=== PATIENT | male | born 1965 | race Caucasian/White ===

== ENCOUNTER 2017-05-15 15:00 | Inpatient (IN) | payer MEDICARE ==
[~2017-05-15] VITALS: Ht 185.4 cm; Wt 120.7 kg
--- NOTE | ~2017-05-15 | PN ---
Unit #: [id number] #: [id number] Patient: KARLA TRAMMELL [id number] [facility] [address] [place] [address] [id number] MR#: [id number] NAME: KARLA TRAMMELL ROOM: P259 Age: 51 Sex: M Admission Date: 05/15/2017 : 1965 Attending Physician: Lance Johnson M.D. Admitting Physician: Lance Johnson M.D. Primary Care Physician: Primary Care Physician Kristin LEPE PROGRESS NOTES DATE 05/20/2017 DISCUSSION Mr. Trammell is a 51-year-old white male who was seen today and chart was reviewed and case was discussed with the staff. He reports persistent anxiety. Meanwhile, he has been taking medications and tolerating them fairly well with no reported side effects. MENTAL STATUS EXAMINATION Middle-aged white male who was casually dressed with fair personal hygiene and appears to be in no acute distress or discomfort. He was awake and alert on interaction with intact orientation. His mood was anxious with congruent affect. His speech is slow and goal-directed. He denies any suicidal or homicidal ideation and also denies any auditory or visual hallucinations. His insight and judgement remains slightly impaired. TREATMENT PLAN 1. Will continue on his current medications and treatment protocol and will monitor his response and make further adjustments as needed. 2. Will continue to follow up. Dictated by... Willa Horne/rio TD: 05/20/2017 16:47 JOB #: [id number] Unit #: [id number] #: [id number] Patient: KARLA TRAMMELL PROGRESS NOTES Page 1 of 1 X Lance Johnson MD PROGRESS NOTE
--- NOTE | ~2017-05-15 | PN ---
Unit #: [id number] #: [id number] Patient: KARLA TRAMMELL [id number] [facility] [address] [place] [address] [id number] I MR#: [id number] NAME: KARLA TRAMMELL ROOM: P259 Age: 51 Sex: M Admission Date: 05/15/2017 : 1965 Attending Physician: Lance Johnson M.D. Admitting Physician: Lance Johnson M.D. Primary Care Physician: Primary Care Physician Kristin LEPE PROGRESS NOTES DATE 05/24/2017 DISCUSSION Mr. Trammell is a 51-year-old white male who was seen today and chart was reviewed and case was discussed with the staff. He has been anxious, withdrawn and rather seclusive to himself. Meanwhile, he has been cooperative with treatment recommendations and has been taking medications and tolerating them fairly well with no reported side effects. MENTAL STATUS EXAMINATION Middle-aged white male who was casually dressed with fair personal hygiene and appears to be in no acute distress or discomfort. He was awake and alert on interaction with intact orientation. His mood was anxious with congruent affect. His speech is slow and goal-directed. He denies any suicidal or homicidal ideation and also denies any auditory or visual hallucinations. His insight and judgement remains slightly impaired. TREATMENT PLAN 1. Will continue on his current treatment protocol. Will monitor his response to the medications and make further adjustments as needed. 2. Will continue to follow up. Dictated by... Willa Horne/rio TD: 05/24/2017 18:32 JOB #: [id number] Unit #: [id number] #: [id number] Patient: KARLA TRAMMELL PROGRESS NOTES Page 1 of 1 X Lance Johnson MD PROGRESS NOTE
--- NOTE | ~2017-05-15 | CO ---
Unit #: [id number] #: [id number] Patient: KARLA QUESADA [id number] [facility] [address] [place] [address] [id number] I MR#: [id number] NAME: KARLA QUESADA ROOM: P259 Age: 51 Sex: M Admission Date: 05/15/2017 : 1965 Attending Physician: Lance Johnson M.D. Primary Care Physician: Primary Care Physician No Consultation Date: 05/17/2017 CONSULTATION REPORT ORDERING PROVIDER Dr. Johnson. REASON FOR CONSULTATION Chest pressure and shortness of breath. SUBJECTIVE The patient reports that he woke up this morning and felt very hot and then all of the sudden had a lot of pressure in his chest and shortness of breath. He does report significant cardiac history including history of myocardial infarction with coronary artery bypass and heart failure. He recently had a cardiac cath placed a couple of days ago, which he told was within normal limits. He denies any swelling or recent weight gain. OBJECTIVE VITAL SIGNS: Stable with blood pressure 126/81, heart rate 61, and O2 saturations at 98%. HEART: Regular rate and rhythm. LUNGS: Clear to auscultation bilaterally. He has no edema. No jugular venous distention. ASSESSMENT Chest pain. PLAN Plan is to get a stat EKG, chest x-ray and lab work. We will also have the nurses monitor daily weight. I think it is likely that the patient is experiencing anxiety; however, due to his stable vital signs and lack of findings on recent cardiac cath, we will continue to monitor. Dictated by... Heather Boland/rhianna TD: 05/18/2017 12:00 JOB #: [id number] Unit #: [id number] #: [id number] Patient: KARLA QUESADA CONSULTATION REPORT Page 1 of 1 X VINOD DIAZ APRN CONSULTATION REPORT
--- NOTE | ~2017-05-15 | EKG ---
PATIENT: KARLA QUESADA UNIT #: [id number] Ventricular Rate: 60 BPM Atrial Rate: 60 BPM P-R Interval: 208 ms QRS Duration: 118 ms Q-T Interval: 446 ms QTC Calculation(Bezet): 446 ms Calculated R Quincy: -25 degrees Calculated T Quincy: 118 degrees Diagnosis Line: Electronic atrial pacemaker Diagnosis Line: Left ventricular hypertrophy with QRS widening Diagnosis Line: Inferior infarct , age undetermined Diagnosis Line: ST and T wave abnormality, consider lateral ischemia Diagnosis Line: Abnormal ECG Diagnosis Line: No previous ECGs available Diagnosis Line: Confirmed by JOSÉ LUIS FREGOSO MD ([id number]) on 05/19/2017 Diagnosis Line: 10:05:28 PM INTERPRETING MD: ZENOBIA SCOTT
--- NOTE | ~2017-05-15 | HP ---
Unit #: [id number] #: [id number] Patient: KARLA QUESADA [id number] [place] [address] [id number] MR#: [id number] NAME: KARLA QUESADA ROOM: P259 Age: 51 Sex: M Admission Date: 05/15/2017 : 1965 Attending Physician: Lance Johnson M.D. Admitting Physician: Lance Johnson M.D. Primary Care Physician: Primary Care Physician No HISTORY AND PHYSICAL HISTORY OF PRESENT ILLNESS Karla is a 51 year old admitted to [address] [place] [address] with depression and verbalizing wanting to hurt himself. PAST MEDICAL HISTORY 1. Coronary artery disease. a. History of WI. b. Six vessel CABG. 2. Aneurysm repair. 3. Pacemaker placed. 4. High blood pressure. 5. Hyperlipidemia. 6. History of congestive heart failure. 7. Cardiomyopathy. 8. Peripheral vascular disease. a. History of claudication. PAST SURGICAL HISTORY 1. As above. 2. Left knee. ALLERGIES No known drug allergies. SOCIAL HISTORY He does not smoke. Drinks alcohol rarely. Denies illicit drug use. FAMILY HISTORY Medically noncontributory. REVIEW OF SYSTEMS CONSTITUTIONAL: No fever or chills. HEENT: Denies any sore throat, ear pain or runny nose. CARDIOVASCULAR: Denies chest pain, irregular heart rhythm or palpitations. CHEST: Denies shortness of breath or cough. No hemoptysis. GASTROINTESTINAL: Denies nausea, vomiting, diarrhea or chronic constipation. ENDOCRINE: Denies history of increased thirst or urination. No recent significant weight loss or gain. GENITOURINARY: Denies dysuria, frequency, or hematuria. SKIN: Denies any rashes. HEMATOLOGIC: Denies history of increased bleeding or bruising. MUSCULOSKELETAL: Denies any hot, swollen joints. No generalized muscle Unit #: [id number] #: [id number] Patient: KARLA QUESADA pain. NEUROLOGIC: Denies problems with vision or speech. No frequent, severe headaches. No numbness, tingling or weakness in any extremities. Denies loss of bladder or bowel control. CURRENT MEDICATIONS 1. Crestor 20 mg daily. 2. Vraylar 3 mg q.h.s. 3. Effexor XR 75 mg q.h.s. 4. Zestril 20 mg daily. 5. Aspirin 81 mg daily. 6. Lanoxin 0.125 mg daily. 7. Brilinta 90 mg b.i.d. 8. Spironolactone 25 mg daily. 9. Mobic 7.5 mg daily. 10. Lasix 40 mg daily. 11. Coreg 25 mg b.i.d. 12. Xanax 0.5 mg daily. 13. Milk of Magnesia p.r.n. 14. Maalox p.r.n. 15. Tylenol p.r.n. PHYSICAL EXAMINATION GENERAL: Alert, well-nourished, in no apparent distress. VITAL SIGNS: Blood pressure 148/88, heart rate 60, respirations 16, temperature 98.6. WEIGHT: 250. HEIGHT: 6 feet 1 inch. SKIN: Warm and dry. He does have a thick, dry, circular rash along his arms and both legs. HEENT: Normocephalic. TMs not viewed. Oral and nasal passages clear. Conjunctivae clear. PERRLA. EOMs intact. NECK: Supple without lymphadenopathy or thyromegaly. HEART: Rate and rhythm is regular with a 1/6 diastolic murmur. CHEST: Pacemaker noted along left anterior chest wall. ABDOMEN: Soft, nontender. : Not done. EXTREMITIES: No evidence of cyanosis, clubbing or edema. Moves all without focal deficit. NEUROLOGICAL: Grossly within normal limits. Cranial Nerves: II: Visual smith are intact. III, IV AND : Extraocular movements are intact. Pupils are equal, round and reactive to light. V: Facial sensation is grossly normal. VII: Facial movements and expression are normal. VIII: Auditory acuity grossly intact. IX, X: Uvula is midline. Phonation is normal. XI: Patient shrugs shoulders and turns head normally. XII: Tongue protrudes in the midline. Sensory and Motor Function: Sensory and motor sensation is grossly normal. Motor: moves all extremities well. Coordination: Gait is normal. Deep Tendon Reflexes: Intact. IMPRESSION Psychiatric admission. RECOMMENDATIONS PSYCHIATRIC: Per psychiatrist. MEDICAL: See no contraindication to participate in facility's activities. Unit #: [id number] #: [id number] Patient: KARLA QUESADA MEDICAL PROGNOSIS Good. MEDICAL CONDITION Stable. Dictated by... Maranda Hdz P.A.-C. for Willa Bowers/rio TD: 05/16/2017 21:55 JOB #: [id number] HISTORY AND PHYSICAL Page 1 of 1 X Maranda Hdz X HISTORY AND PHYSICAL
--- NOTE | ~2017-05-15 | PN ---
Unit #: [id number] #: [id number] Patient: KARLA TRAMMELL [id number] [facility] [address] [place] [address] [id number] I MR#: [id number] NAME: KARLA TRAMMELL ROOM: P259 Age: 51 Sex: M Admission Date: 05/15/2017 : 1965 Attending Physician: Lance Johnson M.D. Admitting Physician: Lance Johnson M.D. Primary Care Physician: Primary Care Physician Kristin BLACK NOTES DATE May 26, 2017 DISCUSSION Mr. Trammell is a 51-year-old white male, who was seen today and chart was reviewed and the case was discussed with the staff. He has been anxious, withdrawn, and rather seclusive to himself, and has been exhibiting some persistent depressive symptoms but he has been calm and cooperative with the treatment recommendations. He has been taking the medications and tolerating them fairly well with no reported side effects. MENTAL STATUS EXAMINATION Middle-aged white male, who was casually dressed with fair personal hygiene and appears to be in no acute distress or discomfort. He was awake and alert on interaction with intact orientation. His mood is anxious with a congruent affect. He denies any suicidal or homicidal ideations. His insight and judgment remain slightly impaired. TREATMENT PLAN 1. We will continue him on his current medications and treatment protocol, and will monitor his response to the medications, and make further adjustments as needed. 2. We will continue to followup. Dictated by... Willa Horne/kingsley TD: 05/27/2017 08:41 JOB #: [id number] Unit #: [id number] #: [id number] Patient: KARLA TRAMMELL PROGRESS NOTES Page 1 of 1 X Lance Johnson MD PROGRESS NOTE
--- NOTE | ~2017-05-15 | PN ---
Unit #: [id number] #: [id number] Patient: KARLA TRAMMELL [id number] [facility] [address] [place] [address] [id number] I MR#: [id number] NAME: KARLA TRAMMELL ROOM: P259 Age: 51 Sex: M Admission Date: 05/15/2017 : 1965 Attending Physician: Lance Johnson M.D. Admitting Physician: Lance Johnson M.D. Primary Care Physician: Primary Care Physician Kristin LEPE PROGRESS NOTES DATE May 25, 2017 DISCUSSION Mr. Trammell is a 51-year-old white male, who was seen today and chart was reviewed and the case was discussed with the staff. He has been doing fairly well but has been seclusive to himself. He has had some persistent anxiety and depressive symptoms. He has been compliant with the treatment recommendations and he has been going to therapy groups and has been taking the medications and tolerating them fairly well. MENTAL STATUS EXAMINATION Middle-aged white male, who was casually dressed with fair personal hygiene and appears to be in no acute distress or discomfort. He was awake and alert on interaction with intact orientation. His mood is anxious with a congruent affect. His speech is slow and goal-directed. He denies any suicidal or homicidal ideations. His insight and judgment remain slightly impaired. TREATMENT PLAN 1. We will continue him on his current medications and treatment protocol, and will monitor his response to the medications, and make further adjustments as needed. 2. We will continue to followup. Dictated by... Willa Horne/kingsley TD: 05/26/2017 09:58 JOB #: [id number] Unit #: [id number] #: [id number] Patient: KARLA TRAMMELL PROGRESS NOTES Page 1 of 1 X Lance Johnson MD PROGRESS NOTE
--- NOTE | ~2017-05-15 | PN ---
Unit #: [id number] #: [id number] Patient: KARLA TRAMMELL [id number] [facility] [address] [place] [address] [id number] I MR#: [id number] NAME: KARLA TRAMMELL ROOM: P259 Age: 51 Sex: M Admission Date: 05/15/2017 : 1965 Attending Physician: Lance Johnson M.D. Admitting Physician: Lance Johnson M.D. Primary Care Physician: Primary Care Physician Kristin LEPE PROGRESS NOTES DATE May 19, 2017 DISCUSSION Mr. Trammell is a 51-year-old white male, who was seen today and chart was reviewed and the case was discussed with the staff. He has been complaining of persistent anxiety and has been seclusive to himself. Meanwhile, he has been cooperative with the treatment recommendations and he has been taking the medications and tolerating them fairly well with no reported side effects. MENTAL STATUS EXAMINATION Middle-aged white male, who was casually dressed with fair personal hygiene and appears to be in no acute distress or discomfort. He was awake and alert on interaction with intact orientation. His mood is anxious with a congruent affect. He denies any suicidal or homicidal ideations, and also denies any auditory or visual hallucinations. His insight and judgment remain slightly impaired. TREATMENT PLAN 1. We will continue him on his current medications and treatment protocol, and will monitor his response to the medications, and make further adjustments as needed. 2. We will continue to followup. Dictated by... Willa Horne/kingsley TD: 05/20/2017 06:38 JOB #: [id number] Unit #: [id number] #: [id number] Patient: KARLA TRAMMELL PROGRESS NOTES Page 1 of 1 X Lance Johnson MD PROGRESS NOTE
--- NOTE | ~2017-05-15 | PN ---
Unit #: [id number] #: [id number] Patient: KARLA TRAMMELL [id number] [facility] [address] [place] [address] [id number] I MR#: [id number] NAME: KARLA TRAMMELL ROOM: P259 Age: 51 Sex: M Admission Date: 05/15/2017 : 1965 Attending Physician: Lance Johnson M.D. Admitting Physician: Lance Johnson M.D. Primary Care Physician: Primary Care Physician Kristin BLACK NOTES DATE OF SERVICE 05/21/2017 DISCUSSION Mr. Trammell is a 31-year-old, white male who was seen today and chart was reviewed and case was discussed with the staff. He reports persistent anxiety though he has been taking the medication and tolerating them fairly well, he has not been able to show a therapeutic response. MENTAL STATUS EXAM Middle-aged white male who was casually dressed with fair personal hygiene, appears to be in no acute distress or discomfort. He was awake and alert on interaction with intact orientation. His mood was anxious with congruent affect. His speech was slow and goal directed. He denies any suicidal or homicidal ideation. Also, denies any auditory or visual hallucinations. His insight and judgement remains slightly impaired. TREATMENT PLAN 1. We will continue him on his current medications and treatment protocol. We will monitor his response to medication and make further adjustments as needed. 2. We will continue to follow up. Dictated by... Willa Horne/rocio TD: 05/22/2017 00:03 JOB #: [id number] [facility] PROGRESS NOTES Page 1 of 1 X Lance Johnson MD PROGRESS NOTE
--- NOTE | ~2017-05-15 | PN ---
Unit #: [id number] #: [id number] Patient: KARLA TRAMMELL [id number] [facility] [address] [place] [address] [id number] I MR#: [id number] NAME: KARLA TRAMMELL ROOM: P259 Age: 51 Sex: M Admission Date: 05/15/2017 : 1965 Attending Physician: Lance Johnson M.D. Admitting Physician: Lance Johnson M.D. Primary Care Physician: Primary Care Physician Kristin BLACK NOTES DATE OF SERVICE 05/23/2017 DISCUSSION Mr. Trammell is a 51-year-old white male who was seen today. Chart was reviewed and case was discussed with the staff. He has been anxious, withdrawn, depressed, and was seclusive to himself. Meanwhile, he has been cooperative with treatment recommendations and has been taking the medications and tolerating them fairly well with no reported side effects. MENTAL STATUS EXAMINATION Middle-aged white male who is casually dressed with fair personal hygiene, appears to be in no acute distress or discomfort. He was awake and alert on interaction with intact orientation. His mood is anxious with congruent affect. His speech is slow and goal-directed. He denies any suicidal or homicidal ideations. His insight and judgment remain slightly impaired. TREATMENT PLAN 1. We will continue him on his current medications and treatment protocol. We will monitor his response to the medications and make further adjustments as needed. 2. We will continue to follow up. Dictated by... Lance Johnson M.D. IAA/mallyg TD: 05/23/2017 12:10 JOB #: [id number] Unit #: [id number] #: [id number] Patient: KARLA TRAMMELL PROGRESS NOTES Page 1 of 1 X Lance Johnson MD PROGRESS NOTE
--- NOTE | ~2017-05-15 | CR63 ---
[facility] A Service of [facility] RADIOLOGY TEXT RESULTS PATIENT: KARLA QUESADA LOCATION: P2 P2505-30 : [birth year] UNIT #: [id number] AGE: [address]: Lance Johnson MD SEX: M ORDER DR: [id number] [facility] [address] [place], [place] [address] [id number] MR#: [id number] Acc #: [id number] NAME: KARLA QUESADA : 1965 SEX: M STUDY DATE/TIME: 05/17/2017 10:09 UNIT: [facility] ROOM: [facility] STUDY DESCRIPTION: CR Chest 2 View Attending Physician: Lance Johnson M.D. Ordering Physician: Lance Johnson M.D. Primary Care Physician: Primary Care Physician No MEDICAL IMAGING REPORT This report is preliminary unless electronic signature is present EXAM 2 views of the chest COMPARISON None INDICATION 51-year-old male with chest pressure and dyspnea today. History of cardiac catheterization a few days ago. FINDINGS No evidence of pneumothorax, pleural effusion or acute airspace disease. There is cardiomegaly. Dual lead left chest pacemaker defibrillator device is noted. No evidence of complication. This device may actually have a third lead, the tip of which is not well evaluated given motion. Sternotomy wires appear intact. There has likely been prior CABG. IMPRESSION 1. Cardiomegaly. No evidence of pulmonary edema or other acute radiographic abnormality of the chest. 2. Prior CABG. Left chest pacemaker/defibrillator device appears grossly unremarkable although the lead tips are not well evaluated due to motion. Dictated by... Nhan Arthur M.D. THIS IS AN ELECTRONICALLY VERIFIED REPORT Nhan Arthur M.D. at 05/19/2017 10:16 PM Nando TD: 05/17/2017 14:18 JOB #: [id number] [facility] A Service of [facility] RADIOLOGY TEXT RESULTS PATIENT: KARLA QUESADA LOCATION: P2L : [birth year] UNIT #: [id number] AGE: [address]: Lance Johnson MD SEX: M ORDER DR: MEDICAL IMAGING REPORT Page 1 of 1 COPY
--- NOTE | ~2017-05-15 | CO ---
Unit #: [id number] #: [id number] Patient: KARLA QUESADA [id number] [facility] [address] [place] [address] [id number] I MR#: [id number] NAME: KARLA QUESADA ROOM: P259 Age: 51 Sex: M Admission Date: 05/15/2017 : 1965 Attending Physician: Lance Johnson M.D. Primary Care Physician: Primary Care Physician No Consultation Date: 05/18/2017 CONSULTATION REPORT Ordering provider is Dr. Johnson. REASON FOR CONSULT Chest pain. SUBJECTIVE The patient was seen yesterday for chest pressure and shortness of breath. EKG, chest x-ray, and lab work were all done. His EKG was unchanged from one done previously on 05/13/2017. His chest x-ray showed no acute findings and his labs were unremarkable. Digoxin level was below therapeutic range. The patient does appear to be stable and feels better today. We will continue to monitor. Dictated by... Heather Boland/rhianna TD: 05/18/2017 21:17 JOB #: [id number] CONSULTATION REPORT Page 1 of 1 X VINOD DIAZ APRN CONSULTATION REPORT
--- NOTE | ~2017-05-15 | PN ---
Unit #: [id number] #: [id number] Patient: KARLA TRAMMELL [id number] [facility] [address] [place] [address] [id number] MR#: [id number] NAME: KARLA TRAMMELL ROOM: P259 Age: 51 Sex: M Admission Date: 05/15/2017 : 1965 Attending Physician: Lance Johnson M.D. Admitting Physician: Lance Johnson M.D. Primary Care Physician: Primary Care Physician Kristin LEPE PROGRESS NOTES DATE 05/22/2017 DISCUSSION Mr. Trammell is a 51-year-old white male who was seen today and chart was reviewed and case was discussed with the staff. He has been anxious, withdrawn and rather seclusive to himself. Meanwhile, he has been cooperative with treatment recommendations and has been taking medications and tolerating them fairly well with no reported side effects. MENTAL STATUS EXAMINATION Middle-aged white male who was casually dressed with fair personal hygiene and appears to be in no acute distress or discomfort. He was awake and alert on interaction with intact orientation. His mood was anxious with congruent affect. His speech is slow and goal-directed. He denies any suicidal or homicidal ideations and also denies any auditory or visual hallucinations. His insight and judgement remains slightly impaired. TREATMENT PLAN 1. Will continue on his current medications and treatment protocol. Will monitor his response to the medications and make further adjustments as needed. 2. Will continue to follow up. Dictated by... Willa Horne/rio TD: 05/22/2017 19:48 JOB #: [id number] Unit #: [id number] #: [id number] Patient: KARLA TRAMMELL PROGRESS NOTES Page 1 of 1 X Lance Johnson MD PROGRESS NOTE
--- NOTE | ~2017-05-15 | PA ---
Unit #: [id number] #: [id number] Patient: KARLA TRAMMELL [id number] [facility] [address] [place] [address] [id number] I MR#: [id number] NAME: KARLA TRAMMELL ROOM: P259 Age: 51 Sex: M Admission Date: 05/15/2017 : 1965 Date of Assessment: Attending Physician: Lance Johnson M.D. Admitting Physician: Lance Johnson M.D. PSYCHIATRIC ASSESSMENT DATE OF SERVICE 05/16/2017. IDENTIFYING DATA Mr. Trammell is a 51-year-old, , disabled white male, who is a resident of [place], [place] and was transferred to from [facility] ([place], [place]) on a voluntary basis. CHIEF COMPLAINT "I've been in a deep depressive episode and I want to kill myself." HISTORY OF PRESENT ILLNESS Mr. Trammell is a 51-year-old white male with a history of mood disorder, who was self referred to the hospital, reporting increasing depression, feelings of hopelessness and suicidal ideation and plan to overdose on his medications. He reports that he is medically retired from the police force and he lives alone and has experienced recent loss, but then refused to discuss loss and reports that he has had open-heart surgery in 2009 and he has a pacemaker and has health issues with limitations and inability to function and he constantly feels in a state of hopelessness and does endorse increasing depression with feelings of hopelessness and helplessness, and suicidal ideations with an intent and plan to overdose on his medications and as such, recommendation for inpatient level of care for safety and stabilization was made and the patient was transferred to us. SUBSTANCE ABUSE HISTORY The patient denies any alcohol or drug abuse. PAST PSYCHIATRIC HISTORY The patient has had inpatient psychiatric treatment in [place], [place] and has been diagnosed and treated for mood disorder, more recently has been on Vraylar and Xanax. PAST MEDICAL HISTORY Coronary artery disease, status post coronary artery bypass grafting. ALLERGIES Allopurinol. PERSONAL AND SOCIAL HISTORY A 51-year-old white male, who reports that he is single, unemployed, and lives alone and has poor social support system. Unit #: [id number] #: [id number] Patient: KARLA TRAMMELL MENTAL STATUS EXAMINATION Middle-aged white male, who was casually dressed with fair personal hygiene, appears to be in no acute distress or discomfort. He was awake and alert on interaction with intact orientation to time, place, and person. His mood was anxious and depressed with a congruent affect. His speech was slow and restricted in content. His thought processes were disorganized with some looseness of associations and flight of ideas and suicidal ideations. His insight and judgment remain significantly impaired. DIAGNOSTIC IMPRESSION Psychiatric: Major depressive disorder, recurrent, moderate, without psychotic features. Medical: Coronary artery disease, status post coronary artery bypass grafting. Stressors: Moderate psychosocial stressors. TREATMENT PLAN 1. The patient has presented with a history of mood disorder, and has been decompensating and will need inpatient hospitalization for safety and stabilization. We will start him back on his home medications and we will adjust the medications and monitor response. 2. Supportive therapy was provided to the patient. 3. Safe, structured, and nourishing environment will be provided. ESTIMATED LENGTH OF STAY 5 to 7 days. ABILITY TO HELP SELF Limited. WILLINGNESS TO HELP SELF The patient appears to be willing to help self. STRENGTHS 1. Communicative. 2. Cooperative. PROBLEMS 1. Chronic dysphoric symptoms. 2. Poor social support system. DISCHARGE CRITERIA This will be contingent upon the patient's ability to show resolution of his depression and anxiety and his ability to stay safe to himself, particularly after discharge from the hospital. Dictated by... Lance Johnson M.D. DEON/dannyl TD: 05/16/2017 07:50 Unit #: [id number] #: [id number] Patient: KARLA TRAMMELL JOB #: [id number] PSYCHIATRIC ASSESSMENT Page 1 of 1 X Lance Johnson MD X PSYCHIATRIC ASSESSMENT
--- NOTE | ~2017-05-15 | DS ---
Unit #: [id number] #: [id number] Patient: [facility]AMMELL [id number] [facility] [address] [place] [address] [id number] I MR#: [id number] NAME: KARLA TRAMMELL ROOM: P259 Age: 51 Sex: M Admission Date: 05/15/2017 : 1965 Discharge Date: 05/29/2017 Attending Physician: Lance Johnson M.D. Primary Care Physician: Primary Care Physician No DISCHARGE SUMMARY IDENTIFYING DATA Mr. Trammell is a 51-year-old , disabled white male who is a resident of [place], [place] and was transferred to us from [facility] on voluntary basis. HISTORY OF PRESENT ILLNESS Please see initial evaluation. PAST PSYCHIATRIC HISTORY Please see initial evaluation. PAST MEDICAL HISTORY Please see initial evaluation. HOSPITAL COURSE The [facility] and was oriented to the hospital environment. Routine p.r.n. medications were initiated and was started back on home medications and medications were adjusted as patient was complaining of persistent depression and anxiety. He was, however, polite and pleasant and cooperative with compliant with treatment recommendations and was taking the medications regularly and was tolerating them fairly well and was able to show a decent therapeutic response with improvement in depression and anxiety and was willing to continue treatment on outpatient basis and as such it was decided that he will be discharged and will continue treatment on outpatient basis. DISCHARGE DIAGNOSES PSYCHIATRIC: Major depressive disorder, recurrent, moderate, without psychotic features. MEDICAL: Coronary artery disease, status post coronary artery bypass graft. STRESSORS: Mild psychosocial stressors. DISCHARGE MEDICATIONS 1. Lamictal 50 mg daily for bipolar. 2. Vistaril 100 mg b.i.d. for anxiety. 3. Vraylar 3 mg at bedtime for bipolar. 4. Coreg 25 mg b.i.d. for coronary artery disease. 5. Mobic 7.5 mg daily for pain. Unit #: [id number] #: [id number] Patient: KARLA TRAMMELL 6. Crestor 20 mg daily for dyslipidemia. 7. Aldactone 25 mg daily for hypertension. 8. Digoxin 0.125 mg daily for coronary artery disease. 9. Aspirin 81 mg daily for coronary artery disease. 10. Zestril 20 mg daily for hypertension. CONDITION AT DISCHARGE Stable. PROGNOSIS Fair. Dictated by... Willa Horne/rio TD: 05/29/2017 22:09 JOB #: [id number] DISCHARGE SUMMARY Page 1 of 1 X Lance Johnson MD X DISCHARGE SUMMARY
--- NOTE | ~2017-05-15 | PN ---
Unit #: [id number] #: [id number] Patient: KARLA TRAMMELL [id number] [facility] [address] [place] [address] [id number] I MR#: [id number] NAME: KARLA TRAMMELL ROOM: P259 Age: 51 Sex: M Admission Date: 05/15/2017 : 1965 Attending Physician: Lance Johnson M.D. Admitting Physician: Lance Johnson M.D. Primary Care Physician: Primary Care Physician Kristin BLACK NOTES DATE 05/17/2017 DISCUSSION Mr. Trammell is a 51-year-old white male who was seen today and chart was reviewed and case was discussed with the staff. He has been anxious, withdrawn and rather seclusive to himself and has also been complaining of chest tightness and does have a history of coronary artery disease and as such medical consultation was requested. However, he was sitting comfortably and did not appear to be in any acute distress or discomfort. However, EKG has been requested. MENTAL STATUS EXAMINATION Middle-aged white male who was casually dressed with fair personal hygiene and appears to be in no acute distress or discomfort. He was awake and alert on interaction with intact orientation. His mood was anxious with congruent affect. He denies any suicidal or homicidal ideation and also denies any auditory or visual hallucinations. His insight and judgement remains slightly impaired. TREATMENT PLAN 1. Will continue on his current medications and treatment protocol. Will monitor his response to the medications and make further adjustments as needed. 2. Will continue to follow up. Dictated by... Willa Horne/rio TD: 05/19/2017 10:38 JOB #: [id number] Unit #: [id number] #: [id number] Patient: KARLA TRAMMELL PROGRESS NOTES Page 1 of 1 X Lance Johnson MD PROGRESS NOTE
--- NOTE | ~2017-05-15 | PN ---
Unit #: [id number] #: [id number] Patient: KALRA TRAMMELL [id number] [facility] [address] [place] [address] [id number] I MR#: [id number] NAME: KARLA TRAMMELL ROOM: P259 Age: 51 Sex: M Admission Date: 05/15/2017 : 1965 Attending Physician: Lacne Johnson M.D. Admitting Physician: Lance Johnson M.D. Primary Care Physician: Primary Care Physician Kristin LEPE PROGRESS NOTES DATE OF SERVICE: 05/18/2017 SUBJECTIVE Mr. Trammell is a 51-year-old white male who was seen today and chart was reviewed, and case was discussed with the staff. He has been anxious, withdrawn, and rather seclusive to himself. Meanwhile, he has been cooperative with treatment recommendations and has been taking the medications and tolerating them fairly well with no reported side effects. MENTAL STATUS EXAMINATION Middle-aged white male who was casually dressed with a fair personal hygiene, appears to be in no acute distress or discomfort. He was awake and alert on interaction with intact orientation. His mood was anxious with a congruent affect. His speech was slow and goal directed. He denies any suicidal or homicidal ideation. His insight and judgment remain slightly impaired. TREATMENT PLAN 1. We will continue him on his current medications and treatment protocol. We will monitor his response to medications and make further adjustments as needed. 2. We will continue to follow up. Dictated by... Willa Horne/rhianna TD: 05/18/2017 19:30 JOB #: [id number] [facility] PROGRESS NOTES Page 1 of 1 X Lance Johnson MD PROGRESS NOTE
--- NOTE | ~2017-05-15 | PN ---
Unit #: [id number] #: [id number] Patient: KARLA TRAMMELL [id number] [facility] [address] [place] [address] [id number] I MR#: [id number] NAME: KARLA TRAMMELL ROOM: P259 Age: 51 Sex: M Admission Date: 05/15/2017 : 1965 Attending Physician: Lance Johnson M.D. Admitting Physician: Lance Johnson M.D. Primary Care Physician: Primary Care Physician Kristin BLACK NOTES DATE May 28, 2017 DISCUSSION Mr. Trammell is a 51-year-old white male, who was seen today and chart was reviewed and the case was discussed with the staff. He has been anxious, withdrawn, and rather seclusive to himself but reports doing much better in his depressive symptoms and has been cooperative with the treatment recommendations. He has been taking the medications and tolerating them fairly well. MENTAL STATUS EXAMINATION Middle-aged white male, who was casually dressed with fair personal hygiene and appears to be in no acute distress or discomfort. He was awake and alert on interaction with intact orientation. His mood is anxious with a congruent affect. He denies any suicidal or homicidal ideations. His insight and judgment remain slightly impaired. TREATMENT PLAN 1. We will continue him on his current medications and treatment protocol, and will monitor his response to the medications, and make further adjustments as needed. 2. We will continue to followup. Dictated by... Willa Horne/kingsley TD: 05/28/2017 12:57 JOB #: [id number] Unit #: [id number] #: [id number] Patient: KARLA TRAMMELL PROGRESS NOTES Page 1 of 1 X Lance Johnson MD PROGRESS NOTE
[2017-05-17 13:39] LABS: BASOPHIL# 0.1 X10e3 (0-0.3); BASOPHIL% 1.2 % (0-2.5); EOSINOPHIL# 0.2 X10e3 (0-0.7); EOSINOPHIL% 2.1 % (0.0-7.0); HEMATOCRIT 42.6 % (38.0-50.0); HEMOGLOBIN 14.3 gm/dL (13.0-16.0); LYMPHOCYTE# 1.6 X10e3 (1.0-3.5); LYMPHOCYTE% 20.6 % (17.0-45.0); MEAN CELL VOLUME 91.3 FL (83-96); MEAN CORPUSCULAR HEMOGLOBIN 30.6 PG (28-34); MEAN CORPUSCULAR HGB CONC 33.5 g/dL (30-36); MEAN PLATELET VOLUME 9.4 FL (6.5-11.5); MONOCYTE# 0.6 X10e3 (0-1.0); MONOCYTE% 8.1 % (3.0-12.0); NEUTROPHIL# 5.2 X10e3 (1.5-7.1); PLATELET COUNT 177 X10e3 (140-420); RED BLOOD COUNT 4.67 X10e (3.90-5.60); RED CELL DISTRIBUTION WIDTH 13.4 % (11.0-15.5); WHITE BLOOD COUNT 7.6 X10e3 (4.0-10.5)
[2017-05-17 13:45] LABS: DIFF IND NO
[2017-05-17 13:51] LABS: ALBUMIN SERUM 3.4 g/dL (3.5-5.0); BUN/CREATININE RATIO 13.33; CALCIUM SERUM 9.4 mg/dL (8.4-10.2); CREATININE SERUM 0.9 mg/dL (0.6-1.4); GLOM FILT RATE Estimated 97.9 mL/min (>60); POTASSIUM 4.2 mmol/L (3.5-5.1); PROTEIN TOTAL SERUM 6.7 g/dL (6.0-8.3)
== END 2017-05-29 16:45 | disposition home or self-care (01) | DRG 885 ==
LOC: P2L 22:56
PROVIDERS: Psychiatry & Neurology Psychiatry
DX: F33.1 Major depressive disorder, recurrent, moderate (principal); R45.851 Suicidal ideations; I25.10 Atherosclerotic heart disease of native coronary artery without angina pectoris; Z95.1 Presence of aortocoronary bypass graft; I25.2 Old myocardial infarction; Z95.0 Presence of cardiac pacemaker; E78.5 Hyperlipidemia, unspecified; R07.9 Chest pain, unspecified
CPT/HCPCS: 71020; 80053; 80162; 83880; 84443; 85025; 93005